=== PATIENT | male | born 1985 | race Caucasian/White ===

== ENCOUNTER 2018-02-23 16:23 | Emergency (ER) | payer OTHER ==
[2018-02-23] MEDS ORDERED: LIDOCAINE 1% W/EPI MPF 30 ML SOL SC ONE (16:30)
[2018-02-23] MEDS ORDERED: LIDOCAINE 1% W/EPI MPF 30 ML SOL ONE (16:31)
[2018-02-23] MEDS ORDERED: BACITRACIN 500 U/GM OIN TOP ONE ×2 (16:37)
[2018-02-23 16:50] VITALS: BP 137/91; PULSE 74; RESP 16; TEMP 98.2; O2SAT 97
== END 2018-02-23 16:45 | disposition home or self-care (01) | DRG 950 ==
LOC: ED 16:23
DX: S61.011D Laceration without foreign body of right thumb without damage to nail, subsequent encounter (principal)
CPT/HCPCS: 99283; A9270-GY

== ENCOUNTER 2018-03-27 15:17 | Emergency (ER) | payer SELFPAY ==
[2018-03-27 15:35] VITALS: RESP 20; TEMP 98.1
[2018-03-27] MEDS ORDERED: KETOROLAC TROMETHAMINE 30 MG/ML SOL IM ONE (15:41)
[2018-03-27] MEDS ORDERED: KETOROLAC TROMETHAMINE 30 MG/ML SOL ONE (15:44)
[2018-03-27] MEDS ORDERED: PREDNISONE 20 MG TAB PO ONE (16:08)
[2018-03-27] MEDS ORDERED: PREDNISONE 20 MG TAB ONE (16:12)
[2018-03-27 16:39] VITALS: BP 115/75; PULSE 76; O2SAT 98
== END 2018-03-27 17:00 | disposition home or self-care (01) | DRG 552 ==
LOC: ED 15:17
DX: M54.42 Lumbago with sciatica, left side (principal)
CPT/HCPCS: 72120; 96372; 99283; 99284; J1885; A9270-GY

== ENCOUNTER 2018-12-03 13:11 | Emergency (ER) | payer SELFPAY ==
[2018-12-03 13:52] VITALS: BP 111/77; PULSE 68; RESP 18; TEMP 97; O2SAT 97
== END 2018-12-03 14:17 | disposition home or self-care (01) | DRG 563 ==
LOC: ED 13:11
DX: S63.501A Unspecified sprain of right wrist, initial encounter (principal); W19.XXXA Unspecified fall, initial encounter
CPT/HCPCS: 73130; 99282; 99283